=== PATIENT | male | born 1950 | race Caucasian/White ===

== ENCOUNTER → 2018-04-20 | Outpatient (CLI) | payer OTHER ==
[~2018-04-20] MED LIST: IOHEXOL 350mgI/ML (OMNIPAQUE) 150 ML BTL IV ONE
== END ==
LOC: FIMAGING 10:48
PROVIDERS: ATTEND Internal Medicine Cardiovascular Disease
DX: I48.91 Unspecified atrial fibrillation (principal); I48.92 Unspecified atrial flutter
CPT/HCPCS: 75572; Q9967

== ENCOUNTER 2018-04-27 06:57 | Observation (INO) | payer OTHER ==
[2018-04-27] MEDS ORDERED: NS 1,000 ML IV ONE (07:00)
[2018-04-27 07:50] LABS: PLATELET COUNT 204 10^3/uL (150-400)
--- NOTE | 2018-04-27 07:56 | CPEKG ---
Test Reason : OPEN Blood Pressure : / mmHG Vent. Rate : 060 BPM Atrial Rate : 061 BPM P-R Int : 180 ms QRS Dur : 094 ms QT Int : 415 ms P-R-T Axes : 050 038 032 degrees QTc Int : 415 ms Sinus rhythm Atrial premature complex Confirmed by Huan Tobar ([id number]) on 04/27/2018 7:56:38 AM Referred By: Ron Campoverde Confirmed By:Huan Tobar
[2018-04-27] MEDS ORDERED: HEPARIN/DEXTROSE 25,000 UNIT/500 ML BAG ONE (08:06)
[2018-04-27] MEDS ORDERED: LIDOCAINE 1% 300 MG/30 ML SDV ONE (08:06)
[2018-04-27] MEDS ORDERED: HEPARIN 10,000 UNIT/10 ML MDV (1,000 UNIT/ML) ONE (08:07)
[2018-04-27 08:08] LABS: INR 1.06 (0.83-1.16)
[2018-04-27] MEDS ORDERED: BUPIVACAINE 0.75% 10 ML SDV ONE (08:08)
[2018-04-27] MEDS ORDERED: IOPAMIDOL (ISOVUE-300) 100 ML BTL ONE (08:08)
--- NOTE | 2018-04-27 08:12 | PDGENHP ---
History & Physical Chief Complaint: afib History of Present Illness: symptomatic afib Relevant Physical Exam: s1s2 rrr cta ao3 Cardiorespiratory Assessment: for cb pvi
[2018-04-27] MEDS ORDERED: MIDAZOLAM 2 MG/2 ML VIAL IVP ONE (08:18)
--- NOTE | 2018-04-27 08:18 | PDANEPAE ---
ANE History of Present Illness NICCI, cryo ablation of atrial fibrillation ANE Past Medical History - Cardiovascular History Hx Hypertension: Yes Hx Arrhythmias: Yes - Pulmonary History Hx Oxygen in Use at Home: No Hx Sleep Apnea: Yes ANE Review of Systems Review of systems is: negative Review of Systems: - Exercise capacity Exercise capacity: >=4 METS ANE Patient History - Allergies Allergies/Adverse Reactions: No Known Allergies Allergy (Verified 04/20/18 11:50) - Home Medications Home medications: home medication list seen and reviewed Home Medications: Apixaban [Eliquis] 5 mg PO BID 04/20/18 [Last Taken 04/24/18 08:00] Diltiazem HCl [Cartia Xt] 120 mg PO DAILY 04/20/18 [Last Taken 04/26/18] Herbals/Supplements -Info Only 1 ea PO DAILY 04/20/18 [Last Taken 04/26/18] Taft-3 Fatty Acids [Fish Oil 1000 mg (*)] 1,000 mg PO DAILY 04/20/18 [Last Taken 04/25/18] traMADol [Ultram 50 mg (*)] 25 mg PO HS 04/20/18 [Last Taken 04/26/18] - NPO status NPO Status: no food or drink >8 hours - Anes Hx Anes Hx: no prior problems - Smoking Hx Smoking Status: Never smoked - Family Anes Hx Family Anes Hx: none ANE Labs/Vital Signs - Labs Result Diagrams: 04/27/18 07:05 04/27/18 07:05 - Vital Signs Vital Signs: reviewed preoperatively; see RN documention for details Height: 185.42 cm Weight: 90.265 kg ANE Physical Exam - Airway Neck exam: FROM Mallampati Score: Class 1 Mouth exam: normal dental/mouth exam - Pulmonary Pulmonary: no respiratory distress - Cardiovascular Cardiovascular: regular rate and rhythym - ASA Status ASA Status: II ANE Anesthesia Plan Anesthesia Plan: general endotracheal anesthesia
[2018-04-27] MEDS ORDERED: fentaNYL 250 MCG/5 ML INJ ONE (08:33)
[2018-04-27] MEDS ORDERED: ONDANSETRON 4 MG/2 ML VIAL ONE (08:33)
[2018-04-27] MEDS ORDERED: DEXAMETHASONE 4 MG/ML VIAL ONE (08:33)
[2018-04-27] MEDS ORDERED: PROPOFOL 200 MG/20 ML VIAL ONE (08:33)
[2018-04-27] MEDS ORDERED: ROCURONIUM 50 MG/5 ML VIAL ONE (08:33)
[2018-04-27] MEDS ORDERED: LIDOCAINE 2% 100 MG/5 ML SYR ONE (08:33)
[2018-04-27] MEDS ORDERED: ePHEDrine SULFATE 25 MG/5 ML SYR ONE (09:04)
[2018-04-27] MEDS ORDERED: PROTAMINE SULFATE 50 MG/5 ML VIAL IVP ONE (10:43)
--- NOTE | 2018-04-27 11:02 | EPPROC ---
Electrophysiology Procedure Note: ELECTROPHYSIOLOGIC STUDY AND BALLOON-CATHETER MEDIATED CRYOABLATION FOR PAROXYMAL ATRIAL FIBRILLATION AND ATRIAL FLUTTER Procedures performed: 52080-02 EP evaluation with RA/RV/LA pace/record, with arrhythmia induction 61875-55 EP evaluation with RA/RV pace record, insert/reposition catheter, with arrhythmia induction 81478 Atrial fibrillation ablation Second arrhythmia Intracardiac echocardiogram Transseptal puncture Fluoroscopy INDICATION: Paroxysmal atrial fibrillation PROCEDURE: The patient arrived in the Electrophysiology Laboratory in the fasting state. The right groin, left groin and right infraclavicular area were prepped and draped in the usual sterile fashion. Anesthesiologist administered general anesthesia Dr. Enrike Avitia . All catheters were placed percutaneously using the Seldinger technique and advanced into position under fluoroscopic guidance. One #7 Finnish deflectable octapolar electrode catheter was placed in the His-bundle position via the left femoral vein (2mm spacing, IVC electrode for unipolar recordings). This catheter was placed in the coronary sinus after transseptal puncture and later placed in the SVC-R subclavian vein junction to pace the right phrenic nerve during right pulmonary vein ablation. One #8 Finnish AcuNaV ultrasound catheter was placed in the left femoral vein and advanced into the right atrium. Programmed stimulation was performed from the right atrium, left atrium (CS) and right ventricle. There was no evidence of AV accessory pathway. Intracardiac echo evaluation of the left atrium and pulmonary veins was performed. Baseline ACT was drawn and heparin bolus was administered and heparin drip was started prior to transseptal puncture. ACT was checked every 15 minutes and maintained in the range of 350-400 seconds. One 14Fr short sheath was placed in the right femoral vein. One 8Fr SL1 sheath was advanced into the right atrium via the 14Fr short sheath. Transseptal puncture was performed under intracardiac ultrasound, fluoroscopic and hemodynamic guidance placing the sheath into the left atrium. [place] RF needle ( C0 curve) was used. The mean left atrial pressure was 15 mmHg. Pulmonary vein angiogram was done using SL1 sheath. CT angiography of pulmonary veins was done previously. There were distinct LSPV, LIPV, RSPV and RIPV. The SL1 sheath was exchanged for a [employer] Flexcath sheath using an Amplatz stiff guide wire. A 28 mm Cryoballoon catheter with a 20 mm Achieve catheter was placed via the sheath into the left atrium. Intracardiac ultrasound and PV angiograms were used to assist in placing the mapping catheter at the antrum of the pulmonary veins. All pulmonary veins were isolated successfully using cryoballoon ablation using freeze/thaw/freeze cycles at 2-3-minute intervals, with good [id number] of isolation. Coumadin ridge/Ligament of Epifanio region was ablated. Pre and post pulmonary vein recordings were measured on the spiral Achieve catheter to ensure complete pulmonary vein isolation. During the right-sided ablation, phrenic nerve pacing was performed to assess the phrenic nerve strength ( manually and with ICE visualization of liver movement during phrenic capture) and the phrenic nerve was intact throughout the right-sided ablation and at the end of the procedure. An esophageal temperature probe (12 electrode, Circa) was placed by the anesthesiologist at the beginning of the procedure. Esophageal temperature was monitored continuously and cryoablation was interrupted if esophageal temperature was <15 C. Cryoapplications 5 total cryoablation time 900 s. Sheath was withdrawn into RA. Agilis sheath was placed , STSF catheter was used. Halo catheter was placed in RA. CT isthmus ablation was done, bidirectional conduction block was achieved. ICE imaging post ablation was consistent with pre ablation imaging with no changes noted, moreover there was no left atrial/left ventricular thrombus and no pericardial effusion. The catheters were withdrawn. Protamine was given. Venous vascular access sheaths were removed in the EP lab after placing subcutaneous pursestring suture. The patient was recovered from anesthesia. There were no complications. The patient was arousable and moving all four extremities at the end of the procedure. CONCLUSIONS: 1. Paroxsymal atrial fibrillation. 2. Successful pulmonary vein isolation procedure (left and right pulmonary vein antrum) using cryoballoon ablation. 3. Atrial flutter, successful CT isthmus ablation achieving bidirectional block across CT isthmus. 4. No apparent complications. Patient Problems: Problems Problem Status Onset Atrial fibrillation Acute
[2018-04-27] MEDS ORDERED: HYDROCODONE/APAP 5/325 TAB PO PRN ×2 (11:19→12:57)
[2018-04-27] MEDS ORDERED: OXYCODONE/APAP 5/325 TAB PO PRN (11:19)
[2018-04-27] MEDS ORDERED: HYDROmorphONE/DILAUDID 1 MG/ML INJ IVP PRN (11:19)
[2018-04-27] MEDS ORDERED: fentaNYL 100 MCG/2 ML INJ IVP PRN (11:19)
[2018-04-27] MEDS ORDERED: MEPERIDINE 25 MG/0.5 ML AMP IVP PRN (11:19)
[2018-04-27] MEDS ORDERED: ONDANSETRON 4 MG/2 ML VIAL IVP PRN (11:19)
[2018-04-27] MEDS ORDERED: PROMETHAZINE HCL 25 MG/ML INJ IVP PRN (11:19)
[2018-04-27] MEDS ORDERED: NALOXONE HCL 0.4 MG/ML INJ IVP PRN (11:19)
[2018-04-27] MEDS ORDERED: DEXAMETHASONE 4 MG/ML VIAL IVP PRN (11:19)
--- NOTE | 2018-04-27 11:21 | POSTANESTH ---
Post Anesthetic Evaluation Cardiovascular Status: Normal, Stable Respiratory Status: Normal, Stable, Similar to Pre-op Cond. Level of Consciousness/Mental Status: Can Participate in Eval, Mildly Sleepy, Arousable Pain Control: Adequate, Prn Tx Ordered Nausea/Vomiting Control: Adequate, Prn Tx Ordered Complications Possibly Related to Anesthesia: None Noted
--- NOTE | 2018-04-27 13:07 | CPEKG ---
Test Reason : OPEN Blood Pressure : / mmHG Vent. Rate : 068 BPM Atrial Rate : 069 BPM P-R Int : 181 ms QRS Dur : 094 ms QT Int : 404 ms P-R-T Axes : 055 053 029 degrees QTc Int : 430 ms Sinus rhythm Confirmed by Huan Tobar ([id number]) on 04/27/2018 1:06:50 PM Referred By: Ron Campoverde Confirmed By:Huan Tobar
[2018-04-27] MEDS: APIXABAN 5 MG TAB PO SCH (17:54)
[2018-04-27] MEDS ORDERED: traMADol 50 MG TAB PO SCH (21:00)
[2018-04-28 05:51] LABS: PLATELET COUNT 167 10^3/uL (150-400)
[2018-04-28] MEDS ORDERED: DILTIAZEM CD 120 MG CAP PO SCH (09:00)
[2018-04-28] MEDS: APIXABAN 5 MG TAB PO SCH (09:43)
[2018-04-28 10:39] VITALS: BP 112/55
--- NOTE | 2018-04-28 13:01 | ECHO ---
[email or web address] [address] [address] Main: [phone] Fax: Transthoracic Echocardiogram Name: XIAO SANCHEZ MR#: [id number] Study Date: 04/28/2018 Study Time: 07:42 AM Date of : 1950 Age: 67 year(s) Height: 185.4 cm (73 in.) Weight: 90.27 kg (199 lb.) BSA: 2.15 m2 Gender: Male Examination: Echo Indication: F/U post EP study Image Quality: Excellent Contrast: Requested by: Ron Campoverde BP: 107 mmHg/46 mmHg Heart Rate: Rhythm: Indication: F/U post EP study Procedure Staff Engine Pilot: Jyoti Cormier RDCS Reading Physician: Ron Campoverde MD Requesting Provider: Conclusions: Normal global systolic LV function. The ejection fraction is estimated to be 65-70 %. Mild mitral valve regurgitation is present. Mild tricuspid regurgitation is present. No pericardial effusion. Measurements: Chambers Valvular Assessment AV/MV Valvular Assessment TV/PV Normal Normal Normal Name Value Range Name Value Range Name Value Range Ao Aysha (MM): 3.9 cm (2.2 cm-3.7 AV Vmax: 1.03 m/s (1 m/s-1.7 TR Vmax: 2.69 mm/s ( - ) cm) m/s) TR PGmax: 29 mmHg ( - ) IVSd (2D): 1.0 cm (0.6 cm-1.1 AV meanP mmHg ( - ) syst. PAP: 34 mmHg ( - ) cm) MV E Vmax: 0.68 m/s ( - ) LVDd (2D): 4.9 cm (4.2 cm-5.9 MV A Vmax: 0.46 m/s ( - ) cm) MV E/A: 1.48 ( - ) LVDs (2D): 2.6 cm (2.1 cm-4 cm) LVPWd (2D): 1.1 cm (0.6 cm-1 cm) LVEF (BP): 75 % (>=55 %) EF Range: 65-70 % Continued Measurements: Chambers Valvular Assessment AV/MV Valvular Assessment TV/PV Name Value Name Value Name Value LADs: 4.6 cm MV E' Septal: 0.08 m/s CVP (est.): 5 mmHg LADs Lon.1 cm MV E/E' Septal: 8.50 LA Area: 25.4 cm2 MV E/E' Lateral: 6.50 Patient: XIAO SANCHEZ Study Date: 04/28/2018 Page 1 of 2 07:42 AM LA Volume: 79 ml LA Volume Index: 36.7 ml/m2 Findings: Left Ventricle: Normal size left ventricle. No LV hypertrophy. Normal global systolic LV function. The ejection fraction is estimated to be 65-70 %. No regional wall motion abnormality. Normal diastolic LV function. Right Ventricle: Normal size right ventricle. Left Atrium: The left atrium is mildly dilated. Right Atrium: The right atrium is normal in size. Mitral Valve: The mitral valve is normal in appearance and function. Mild mitral valve regurgitation is present. Aortic Valve: The aortic valve is normal in appearance and function. The aortic valve is tri-leaflet. Tricuspid Valve: The tricuspid valve is normal in appearance and function. Mild tricuspid regurgitation is present. RVSP is 34mmHG.. Pulmonic Valve: The pulmonic valve is normal in appearance and function. Trivial pulmonic valve regurgitation. Aorta: The aorta is normal. Pericardium: No pericardial effusion. (No Signature Object) Patient: XIAO SANCHEZ Study Date: 04/28/2018 Page 2 of 2 07:42 AM [id number]
--- NOTE | 2018-04-28 13:23 | ECHO ---
[email or web address] [address] [address] Main: [phone] Fax: Transesophageal Echocardiography Name: XIAO SANCHEZ MR#: [id number] Study Date: 04/27/2018 Study Time: 08:56 AM Date of : 1950 Age: 67 year(s) Height: ( ) Weight: ( ) BSA: Gender: Male Examination: NICCI Indication: Pre EP Image Quality: Contrast: Requested by: Ron Campoverde Heart Rate: Rhythm: BP: / Procedure Staff Senior Materials Planner: Aman Lucas RDCS Reading Physician: Ron Campoverde MD Requesting Provider: NICCI Exam Details Measurements: Chambers Valvular Assessment AV/MV Valvular Assessment TV/PV Normal Normal Normal Name Value Range Name Value Range Name Value Range Additional Measurements: Findings: Left Ventricle: Normal global systolic LV function. Right Ventricle: Normal RV function. Left Atrium: An agitated saline study was performed and was negative for intracardiac shunting. Left Atrial Appendage: Good color flow doppler in the left atrial appendage. No thrombus in left appendage. Right Atrium: The right atrium is normal in size. Mitral Valve: The mitral valve is normal in appearance and function. Aortic Valve: The aortic valve is tri-leaflet and functions normally. Tricuspid Valve: Patient: XIAO SANCHEZ Study Date: 04/27/2018 Page 1 of 2 08:56 AM The tricuspid valve is normal in appearance and function. Pulmonic Valve: The pulmonic valve is normal in appearance and function. Aorta: The aorta is normal. Pericardium: No pericardial effusion. l1n (No Signature Object) Patient: XIAO SANCHEZ Study Date: 04/27/2018 Page 2 of 2 08:56 AM [id number]
--- NOTE | 2018-04-28 15:02 | CPEKG ---
Test Reason : OPEN Blood Pressure : / mmHG Vent. Rate : 063 BPM Atrial Rate : 063 BPM P-R Int : 181 ms QRS Dur : 099 ms QT Int : 408 ms P-R-T Axes : 051 051 028 degrees QTc Int : 418 ms Sinus rhythm Confirmed by Huan Tobar ([id number]) on 04/28/2018 3:01:44 PM Referred By: Ron Campoverde Confirmed By:Huan Tobar
--- NOTE | 2018-04-30 07:03 | GDS ---
[f rep st] DISCHARGE SUMMARY DATE OF ADMISSION: 04/27/2018 DATE OF DISCHARGE: 04/28/2018 SUPERVISING MANAGER CONFIGURATION: Ron Campoverde MD. ADMISSION DIAGNOSES: 1. Atrial fibrillation. 2. Atrial flutter. DISCHARGE DIAGNOSES: 1. Atrial fibrillation, status post successful cryoballoon pulmonary vein isolation. 2. Atrial flutter, status post successful ablation HOSPITAL COURSE: The patient presented 04/27/2018 for an atrial fibrillation and atrial flutter ablation in the setting of increasingly symptomatic atrial fibrillation. He underwent successful cryonalloon pulmonary vein isolation and atrial flutter ablation with Dr. Campoverde. He had no intra-procedure complications and has done very well in the postprocedure setting. He has been up ambulating around his room this morning and he is stable and appropriate for discharge home. PHYSICAL EXAMINATION: GENERAL: Alert and oriented x4, in no apparent distress. VITAL SIGNS: 112/55, heart rate 65, respiratory rate 18, SpO2 98% on room air, temperature 36.5 degrees Celsius. RESPIRATORY: Lungs are clear to auscultation. No adventitious breath sounds. CARDIAC: Normal S1, S2, no S3 or S4, rhythm is regular. ABDOMEN: Normoactive bowel sounds times all 4 quadrants. No masses or tenderness. ABDOMEN: Soft to palpation. SKIN: [place] , warm, dry without cyanosis or clubbing. No peripheral edema. EXTREMITIES: Bilateral purse string sutures removed intact without evidence of hematoma or redness, oozing, swelling, or warmth. Pulses are 2+ bilaterally. No edema. LABORATORY STUDIES: Drawn 04/28/2018 demonstrated stable CBC and stable BMP. His troponin was 9.35. Elevated troponin is to be expected in the postprocedure setting. PROCEDURES: Electrophysiology Study, atrial flutter and atrial fibrillation ablations as mentioned above. Electrocardiogram done this morning demonstrates normal sinus rhythm with a normal CA interval and no new ST or T-wave abnormalities. Postprocedure echocardiogram completed this morning demonstrates normal systolic function with LVEF 65% to 70%, mild mitral valve regurgitation, and mild tricuspid valve regurgitation. DISCHARGE DISPOSITION: The patient will be discharged home in stable condition. He is under activity restrictions as below. DISCHARGE MEDICATIONS: Please see discharge medication reconciliation sheet for full details. Please note that patient has been restarted on his Eliquis 6 hours post procedure and he will continue omeprazole for the next 6 weeks. He understands that he may not stop his Eliquis for any reason for the next 3 months. DISCHARGE INSTRUCTIONS: Post atrial fibrillation and atrial flutter ablation instructions were reviewed with patient in detail. 1. We discussed restrictions including lifting no more than 10 pounds and avoidance of submerged bathing for 10 days. 2. He will get up and walk around every 45 minutes for the next 45 days while awake. 3. He will avoid unpressurized air travel or scuba diving for the next 6 months and he will present to our clinic for an echocardiogram prior to engaging in either of these activities. 4. We also reviewed bleeding precautions, medication compliance, monitoring for signs and symptoms of infection, monitoring for atrioesophageal fistula, and monitoring for bleeding and sustained arrhythmia. At the time of discharge, patient verbalized understanding regarding all discharge instructions without questions or concerns. He has a followup visit scheduled in our clinic within the next 3 weeks and he will contact us with any new or concerning symptoms prior to this visit. Time spent on discharge greater than 30 minutes. /[id number]/MODL MTDD
== END 2018-04-28 12:13 | disposition home or self-care (01) ==
LOC: FCATH 06:57 → F2N 10:52
PROVIDERS: ADMIT Internal Medicine Cardiovascular Disease; ATTEND Internal Medicine Cardiovascular Disease
DX: I48.0 Paroxysmal atrial fibrillation (principal); I48.92 Unspecified atrial flutter; Z79.01 Long term (current) use of anticoagulants
CPT/HCPCS: 93005; 93306; 93312; 93613; 93656; 93662; C1730; C1731; C1732; C1733; C1759; C1766; C1893; J1100; J1644; J2001; J2250; J2405; J2704; J2720; J3010; Q9967

== ENCOUNTER → 2018-08-09 | Outpatient (CLI) | payer OTHER | LOC: BHFA 09:15 | PROVIDERS: ATTEND Internal Medicine Interventional Cardiology | DX: I48.91 Unspecified atrial fibrillation (principal) ==

== ENCOUNTER → 2018-08-27 | Outpatient (CLI) | payer OTHER | LOC: BMCIMAGING 17:48 ==